=== PATIENT | female | born 1985 | race Caucasian/White ===

== ENCOUNTER 2020-08-28 09:40 | Day surgery (SDC) | payer OTHER | END 2020-08-28 23:50 | disposition home or self-care (01) | LOC: MOI US 09:40 → MOI MAM 10:15 → MOI US 23:50 | DX: D24.2 Benign neoplasm of left breast (principal) | CPT/HCPCS: 19083; 76830; 77065; 88305; A4648; G0279 ==

== ENCOUNTER 2022-06-17 06:00 | Day surgery (SDC) | payer OTHER ==
[2022-06-10 10:52] LABS: BASOPHILS ABSOLUTE AUTO 0.01 K/mm3 (0.00-0.23); BASOPHILS PERCENT AUTO 0 % (0-2); EOSINOPHILS ABSOLUTE AUTO 0.07 K/mm3 (0.00-0.68); EOSINOPHILS PERCENT AUTO 2 % (0-6); Hematocrit 41.8 % (33.0-51.0); IMMATURE GRAN ABSOLUTE AUTO 0.01 K/mm3 (0.00-0.10); IMMATURE GRAN PERCENT AUTO 0 % (0-1); LYMPHOCYTES ABSOLUTE AUTO 1.73 K/mm3 (0.84-5.20); LYMPHOCYTES PERCENT AUTO 43 % (21-46); MONOCYTES ABSOLUTE AUTO 0.53 K/mm3 (0.16-1.47); MONOCYTES PERCENT AUTO 13 % (4-13); Mean Corpuscular HGB 29.9 pg (26.0-34.0); Mean Corpuscular HGB Conc 33.5 g/dL (31.5-36.5); Mean Corpuscular Volume 89 fL (80-100); Mean Platelet Volume 11.4 fL (9.1-12.4); NEUTROPHILS ABSOLUTE AUTO 1.72 K/mm3 (1.96-9.15); NEUTROPHILS PERCENT AUTO 42 % (41-73); Platelet Count 168 K/mm3 (150-400); RDW Coefficient Variation 12.2 % (11.7-14.2); Red Blood Cell Count 4.69 M/mm3 (3.80-5.20); White Blood Cell Count 4.07 K/mm3 (4.00-11.30)
[~2022-06-17] VITALS: Ht 165.1 cm; Wt 85.7 kg
[~2022-06-17 06:00] MED LIST: NUVARING VAGIN1 EAC1
--- NOTE | 2022-06-17 10:00 | NUR ---
NEW ORDER FROM DR STEVENSON LABETALOL 5 MG IV IF BLOOD PRESSURE SYSTOLIC ABOVE 110
--- NOTE | 2022-06-17 10:36 | NUR ---
assumed care at A/O C/O PAIN LEFT ELBOW TO LEFT SHOULDER CAP REFILL WO MINGO WNL MOVES FINGERS WITHOUT PROBELEM SHE TELLS ME SHE IS ANXIOUS ASSISTED WITH DEEP BREATHING AND VISUAL MEDICATING PRESCRIBED FOR PAIN DENIES NAUSEA
--- NOTE | 2022-06-17 11:16 | NUR ---
Patient up to Ambulate independently. Gait steady TO BR. VOIDED W/O DIFFICULTY. [email or web address]
--- NOTE | 2022-06-17 11:19 | NUR ---
Patient up to Ambulate independently. Gait steady. Discharge instructions reviewed with patient. Patient verbalizes understanding. Copy given to patient to take home, [facility]. Patient States Post-Procedure ride home has been arranged. Discharged via wheelchair to private car for ride home. PT ABLE TO VOID PRIOR TO LEAVING. PT HAD MINIMAL VAGINAL DRAINAGE. PT ABD SITES APPEARED WNL. PT REPORTED THAT HER BP WAS ELEVATED PRIOR TO PROCEDURE THAT SHE JUST GETS ANXIOUS, SHE REPORTS SHE WILL F/U WITH PCP.
== END 2022-06-17 11:21 | disposition home or self-care (01) ==
LOC: ORSCMMR 06:00
PROVIDERS: Obstetrics & Gynecology
PROC: 0UT74ZZ Resection of Bilateral Fallopian Tubes, Percutaneous Endoscopic Approach (ICD-10-PCS; principal; 2022-06-17 07:30)
PROC: 0UDB8ZX Extraction of Endometrium, Via Natural or Artificial Opening Endoscopic, Diagnostic (ICD-10-PCS; principal; 2022-06-17 07:30)
DX: Z30.2 Encounter for sterilization (principal); N92.0 Excessive and frequent menstruation with regular cycle; N94.6 Dysmenorrhea, unspecified; N80.359 Endometriosis of pelvic sidewall, unspecified side, unspecified depth
CPT/HCPCS: 36415; 84702; 85025; 88302; 88305; A9270; J0690; J1100; J1885; J2250; J2405; J2704; J3010; J7120